=== PATIENT | male | born 1950 | race Native Hawaiian/Other Pacific Islander ===

== ENCOUNTER 2024-02-17 12:33 | Outpatient (OUT) | payer MEDICARE, OTHER, SELFPAY ==
--- NOTE | 2024-02-17 | XR_ITS ---
[address] [address] Patient Name: GOKUL UNDERWOOD MRN: [id number] date: 1950 Sex: M Assigned Patient Location: Current Patient Location: Accession/Order Number: [id number] Exam Date: 02/17/2024 12:36 Report Date: 02/18/2024 10:36 At the request of: LORE JOEL Procedure: XR foot RT min 3V PROCEDURE: XR ankle RT min 3V, XR foot RT min 3V COMPARISON: None. HISTORY: RIGHT ANKLE PAIN FINDINGS: BONES:No acute fracture or dislocation. Severe degenerative changes of the hindfoot with inversion of the hindfoot in relation to the tibia and marked bony remodeling of the tibial plateau. There is pafy-[id number] articulation of the tibiotalar and fibulotalar joints with extensive proliferative osteophyte formation. Moderate degenerative changes of the midfoot with joint space narrowing and marginal osteophyte formation SOFT TISSUES:Negative. No visible soft tissue swelling. EFFUSION:None visible. 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
--- NOTE | 2024-02-17 | XR_ITS ---
[address] [address] Patient Name: GOKUL UNDERWOOD MRN: [id number] date: 1950 Sex: M Assigned Patient Location: Current Patient Location: Accession/Order Number: [id number] Exam Date: 02/17/2024 12:39 Report Date: 02/18/2024 10:36 At the request of: LORE JOEL Procedure: XR ankle RT min 3V PROCEDURE: XR ankle RT min 3V, XR foot RT min 3V COMPARISON: None. HISTORY: RIGHT ANKLE PAIN FINDINGS: BONES:No acute fracture or dislocation. Severe degenerative changes of the hindfoot with inversion of the hindfoot in relation to the tibia and marked bony remodeling of the tibial plateau. There is [id number] articulation of the tibiotalar and fibulotalar joints with extensive proliferative osteophyte formation. Moderate degenerative changes of the midfoot with joint space narrowing and marginal osteophyte formation SOFT TISSUES:Negative. No visible soft tissue swelling. EFFUSION:None visible. 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
== END 2024-02-17 12:34 | disposition home or self-care (01) ==
PROVIDERS: Visit Provider Podiatrist Foot & Ankle Surgery
DX: M25.571 Pain in right ankle and joints of right foot (principal)
CPT/HCPCS: 73610; 73630